=== PATIENT | male | born 1985 | race American Indian/Alaskan Native ===

== ENCOUNTER 2021-02-10 14:55 | Emergency (ER) | payer SELFPAY ==
[2021-02-10] MEDS ORDERED: BACITRACIN ZINC OINT 28.4 GM TP ONE (16:21)
--- NOTE | 2021-02-10 16:26 | Emergency Department Report ---
- General Chief complaint: Skin/Abscess/Foreign Body Stated complaint: BLISTERS JOSE FEET/SWELLING Time Seen by Provider: 02/10/21 16:12 Source: patient, EMS Mode of arrival: Wheelchair Limitations: No Limitations - History of Present Illness Initial comments: Patient is a 35-year-old male presents emergency room with complaints of multiple blisters to the bilateral feet that began 2 weeks ago. Patient states that he was wearing some shoes that were rubbing against the feet. He denies any fever, drainage, nausea, vomiting, diarrhea, numbness, weakness. No past medical history. Allergy to penicillin. - Related Data Previous Rx's Medication Instructions Recorded Last Taken Type Bacitracin Zinc Oint [Antibiotic 1 applicatio TP TID #1 tube 02/10/21 Unknown Rx Oint] Allergies Allergy/AdvReac Type Severity Reaction Status Date / Time Penicillins Allergy Hives Verified 02/10/21 15:13 Abscess Boil HPI - HPI Chief Complaint: Skin/Abscess/Foreign Body Stated Complaint: BLISTERS JOSE FEET/SWELLING Time Seen by Provider: 02/10/21 16:12 Home Medications: Previous Rx's Medication Instructions Recorded Last Taken Type Bacitracin Zinc Oint [Antibiotic 1 applicatio TP TID #1 tube 02/10/21 Unknown Rx Oint] Allergies/Adverse Reactions: Allergies Allergy/AdvReac Type Severity Reaction Status Date / Time Penicillins Allergy Hives Verified 02/10/21 15:13 ED Review of Systems ROS: Stated complaint: BLISTERS JOSE FEET/SWELLING Other details as noted in HPI Comment: All other systems reviewed and negative ED Past Medical Hx - Past Medical History Previous Medical History?: No - Surgical History Past Surgical History?: No - Social History Smoking Status: Current Some Day Smoker - Medications Home Medications: Home Medications Medication Instructions Recorded Confirmed Last Taken Type Bacitracin Zinc Oint [Antibiotic 1 applicatio TP TID #1 tube 02/10/21 Unknown Rx Oint] ED Physical Exam - General Limitations: No Limitations General appearance: alert, in no apparent distress - Head Head exam: Present: atraumatic, normocephalic - Eye Eye exam: Present: normal appearance - ENT ENT exam: Present: mucous membranes moist - Respiratory Respiratory exam: Absent: respiratory distress, accessory muscle use - Neurological Exam Neurological exam: Present: alert, oriented X3 - Psychiatric Psychiatric exam: Present: normal affect, normal mood - Skin Skin exam: Present: warm, dry, other (small clear fluid filled blisters present to the bilateral feet, no erythema, no purulent drainage, no increased warmth, FROM of the BLE, neurovascularly intact) ED Course Vital Signs 02/10/21 02/10/21 15:00 17:11 Temperature 98 F Pulse Rate 98 H 88 Respiratory 18 16 Rate Blood Pressure 142/95 Blood Pressure 145/88 [Left] O2 Sat by Pulse 100 100 Oximetry ED Medical Decision Making - Medical Decision Making Patient is a 35-year-old male presents emergency room with complaints of multiple blisters to the bilateral feet that began 2 weeks ago. Patient states that he was wearing some shoes that were rubbing against the feet. He denies any fever, drainage, nausea, vomiting, diarrhea, numbness, weakness. No past medical history. Allergy to penicillin. Vitals are stable. On exam:small clear fluid filled blisters present to the bilateral feet, no erythema, no purulent drainage, no increased warmth, FROM of the BLE, neurovascularly intact. Blisters on the feet are in the distribution related to shoe contact, likely related to the shoes he is wearing which is causing fluid-filled blisters. There is no signs of cellulitis or infection. Bacitracin ointment and dressing placed by nurse. Advised patient to not attempt to pop the blisters. Patient will be referred to primary care doctor and podiatry. Advised patient to not continue to wear shoes that are too small or that cause pain. Advised patient Please use medication as prescribed. Please do not wear tight fitting shoes and nothing that rubs against the feet. Follow-up with a machine made shoe unit worker. Follow-up with primary care doctor. Return to emergency room for new or worsening symptoms. Critical care attestation.: If time is entered above; I have spent that time in minutes in the direct care of this critically ill patient, excluding procedure time. ED Disposition Clinical Impression: Multiple blisters Disposition: DC-01 TO HOME OR SELFCARE Is pt being admited?: No Does the pt Need Aspirin: No Condition: Stable Instructions: Blisters, Adult Additional Instructions: Please use medication as prescribed. Please do not wear tight fitting shoes and nothing that rubs against the feet. Follow-up with a machine made shoe unit worker. Follow-up with primary care doctor. Return to emergency room for new or worsening symptoms. Prescriptions: Bacitracin Zinc Oint [Antibiotic Oint] 1 applicatio TP TID #1 tube Referrals: KETURAH ARTEAGA DPM [Staff Physician] - 2-3 Days JUNIOR CAMILO MD [Staff Physician] - 2-3 Days [facility] [Provider Group] - 2-3 Days Time of Disposition: 16:24 Print Language: PERSIAN
[2021-02-10 17:16] VITALS: BP 145/88
== END 2021-02-10 17:11 | disposition home or self-care (01) ==
LOC: ED 14:55
DX: R23.8 Other skin changes (principal); F17.200 Nicotine dependence, unspecified, uncomplicated; Z79.899 Other long term (current) drug therapy; Z88.0 Allergy status to penicillin